=== PATIENT | male | born 1985 | race Caucasian/White ===

== ENCOUNTER 2021-10-31 22:30 | Inpatient (IN) | payer OTHER ==
[~2021-10-31] VITALS: Ht 167.6 cm; Wt 59.1 kg
[2021-10-31 23:11] LABS: HEMOGLOBIN 9.3 gm/dl (14.0-17.5); RED BLOOD COUNT 3.13 M/UL (4.20-5.50); WHITE BLOOD COUNT 6.2 K/UL (4.5-11.0)
[2021-10-31 23:31] LABS: BUN/CREATININE RATIO 22 (0-10)
[2021-11-01] MEDS ORDERED: BUPROPION XL150 MG PO (10:25)
[2021-11-01] MEDS ORDERED: BUPRENORPHIN-N1 EACH SL (10:26)
[2021-11-01] MEDS ORDERED: QUETIAPINE FUM300 MG PO (10:26)
[2021-11-01] MEDS ORDERED: VITAMIN D21250 MCG PO (10:27)
== END 2021-11-01 15:16 | disposition home or self-care (01) | DRG 441 ==
LOC: ER1 22:30 → CDU 23:44 → M/S 11-01 00:48
PROVIDERS: Family Medicine; ADMIT Surgery
DX: S36.114A Minor laceration of liver, initial encounter (principal); S31.600A Unspecified open wound of abdominal wall, right upper quadrant with penetration into peritoneal cavity, initial encounter; F11.20 Opioid dependence, uncomplicated; Z20.822 Contact with and (suspected) exposure to COVID-19; F90.9 Attention-deficit hyperactivity disorder, unspecified type; F43.10 Post-traumatic stress disorder, unspecified; W45.8XXA Other foreign body or object entering through skin, initial encounter
CPT/HCPCS: 71045; 71046; 71260; 80053; 83605; 85025; 85610; 85730; 86850; 86900; 86901; G0480; Q9967